=== PATIENT | female | born 1995 | race Hispanic/Latino ===

== ENCOUNTER 2018-07-10 14:22 | Emergency (ER) | payer OTHER ==
[2018-07-10 14:45] VITALS: BMI 21.8
--- NOTE | 2018-07-10 16:23 | CT ---
Date of service: 07/10/2018 PROCEDURE: CT HEAD WITHOUT CONTRAST. HISTORY: headache COMPARISON: None available. TECHNIQUE: Axial computed tomography images were obtained through the head/brain without intravenous contrast. Radiation dose: Total exam DLP = 798.72 mGy-cm. This CT exam was performed using one or more of the following dose reduction techniques: Automated exposure control, adjustment of the mA and/or kV according to patient size, and/or use of iterative reconstruction technique. FINDINGS: HEMORRHAGE: No intracranial hemorrhage. BRAIN: No mass effect or edema. No atrophy or chronic microvascular ischemic changes. VENTRICLES: Unremarkable. No hydrocephalus. CALVARIUM: Unremarkable. PARANASAL SINUSES: Unremarkable as visualized. No significant inflammatory changes. MASTOID AIR CELLS: Unremarkable as visualized. No inflammatory changes. OTHER FINDINGS: None. IMPRESSION: No acute findings
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
[2018-07-10] MEDS ORDERED: Lidocaine 1% 5ml Abboject IJ STA (16:53)
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
[2018-07-10 17:45] VITALS: BP 118/69
[2018-07-10] MEDS ORDERED: TDAP Vaccine 0.5 mL Syr IM ONE (17:52)
[2018-07-10 18:14] VITALS: PULSE 79; RESP 19; TEMP 98.2; O2SAT 99
== END 2018-07-10 18:14 | disposition home or self-care (01) ==
LOC: ED 14:22 → MERGE 14:22 → ED 18:14
DX: S01.81XA Laceration without foreign body of other part of head, initial encounter (principal); Y04.8XXA Assault by other bodily force, initial encounter